=== PATIENT | male | born 2000 | race Caucasian/White ===

== ENCOUNTER 2023-12-10 17:56 | Emergency (ER) | payer BC, OTHER | END 2023-12-10 18:25 | disposition home or self-care (01) | LOC: LL.ED 17:56 | DX: S06.0X0A Concussion without loss of consciousness, initial encounter (principal); W01.0XXA Fall on same level from slipping, tripping and stumbling without subsequent striking against object, initial encounter | CPT/HCPCS: 99283 ==

== ENCOUNTER 2024-02-11 07:32 | Emergency (ER) | payer OTHER, BC ==
[2024-02-11 07:46] VITALS: BP 146/95; PULSE 66
== END 2024-02-11 08:30 | disposition home or self-care (01) ==
LOC: LL.ED 07:32
DX: S46.912A Strain of unspecified muscle, fascia and tendon at shoulder and upper arm level, left arm, initial encounter (principal); Z91.048 Other nonmedicinal substance allergy status; X50.0XXA Overexertion from strenuous movement or load, initial encounter; Y93.89 Activity, other specified; Y99.0 Civilian activity done for income or pay
CPT/HCPCS: 99283